=== PATIENT | female | born 1965 | race Caucasian/White ===

== ENCOUNTER 2017-01-16 14:57 | Emergency (ER) | payer OTHER ==
[2017-01-16 15:07] VITALS: RESP 18; TEMP 99.5
[2017-01-16] MEDS ORDERED: LORazepam 1 MG TAB PO ONE (15:18)
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
[2017-01-16 16:34] VITALS: BP 146/96; PULSE 95; O2SAT 95
== END 2017-01-16 16:33 | disposition home or self-care (01) ==
LOC: EDUNIT#
DX: S52.572A Other intraarticular fracture of lower end of left radius, initial encounter for closed fracture (principal); X58.XXXA Exposure to other specified factors, initial encounter; Y92.481 Parking lot as the place of occurrence of the external cause; Y93.89 Activity, other specified
CPT/HCPCS: A4565